=== PATIENT | male | born 1985 | race American Indian/Alaskan Native ===

== ENCOUNTER 2016-10-11 17:06 | Emergency (ER) | payer BC ==
[2016-10-11 17:14] VITALS: RESP 16; TEMP 98; BMI 35.4
--- NOTE | 2016-10-11 18:32 | ED PDOC ---
Arrival/HPI - General Chief Complaint: Back Pain Time Seen by Provider: 10/11/16 17:44 Historian: Patient - History of Present Illness Narrative History of Present Illness (Text): 10/11/16 18:32 A 31 year old male presents to the emergency department complaining of lower back pain for the past dew days. Patient reports his pain began after lifting weights. Patient notes radiating pain down his left leg. He reports secondary complaint of left great toe pain with minimal drainage. Patient denies any fever , chills, nausea, vomiting, diarrhea, abdominal pain, urinary symptoms, bladder/ bowel incontinence, chest pain, shortness of breath, cough, or any other complaints. PMD: Dr. Petty Time/Duration: < week Symptom Course: Unchanged Quality: Other Context: Other Past Medical History - Provider Review Nursing Documentation Reviewed: Yes - Psychiatric Hx Substance Use: No - Surgical History Hx Open Reduction Internal Fixation: Yes (Rt Shoulder) Family/Social History - Physician Review Nursing Documentation Reviewed: Yes Family/Social History: No Known Family HX Smoking Status: Never Smoked Hx Alcohol Use: No Hx Substance Use: No Allergies/Home Meds Allergies/Adverse Reactions: Allergies No Known Allergies Allergy (Verified 10/11/16 17:14) Review of Systems - Physician Review All systems were reviewed & negative as marked: Yes - Review of Systems Constitutional: absent: Fevers, Night Sweats Respiratory: absent: SOB, Cough Cardiovascular: absent: Chest Pain Gastrointestinal: absent: Abdominal Pain, Diarrhea, Nausea, Vomiting Genitourinary Male: absent: Dysuria, Frequency, Hematuria, Urinary Output Changes, Other (bladder/bowel incontinence) Musculoskeletal: Back Pain (lower back pain radiating down left lower extremity) , Other (Left great toe pain with minimal drainage) Physical Exam Vital Signs Reviewed: Yes Vital Signs Temp Pulse Resp BP Pulse Ox 10/11/16 18:35 72 16 138/77 99 10/11/16 17:11 98.0 F 55 L 16 145/88 98 Temperature: Afebrile Blood Pressure: Normal Pulse: Bradycardic Respiratory Rate: Normal Appearance: Positive for: Well-Appearing, Non-Toxic, Comfortable Pain Distress: None Mental Status: Positive for: Alert and Oriented X 3 - Systems Exam Head: Present: Atraumatic, Normocephalic Pupils: Present: PERRL Extroacular Muscles: Present: EOMI Conjunctiva: Present: Normal Mouth: Present: Moist Mucous Membranes Neck: Present: Normal Range of Motion Respiratory/Chest: Present: Clear to Auscultation, Good Air Exchange. No: Respiratory Distress, Accessory Muscle Use Cardiovascular: Present: Regular Rate and Rhythm, Normal S1, S2. No: Murmurs Abdomen: Present: Normal Bowel Sounds. No: Tenderness, Distention, Peritoneal Signs Back: Present: Other (Minimal diffuse lower back pain) Upper Extremity: Present: Normal Inspection. No: Cyanosis, Edema Lower Extremity: Present: NORMAL PULSES, Normal ROM, Neurovascularly Intact, Other (Ingrown nail in left great toe, tender to touch, no obvious drainage). No: Edema, CALF TENDERNESS, Deformity, Temperature Abnormalties Neurological: Present: GCS=15, CN II-XII Intact, Speech Normal Skin: Present: Warm, Dry, Normal Color. No: Rashes Psychiatric: Present: Alert, Oriented x 3, Normal Insight, Normal Concentration Medical Decision Making ED Course and Treatment: 10/11/16 18:32 Impression: A 31 year old male with lower back pain radiating down left lower extremity. Patient notes left great toe pain. Plan: -- Keflex and Motrin -- Reassess and disposition Progress Notes: - Medication Orders Current Medication Orders: Discontinued Medications Cephalexin Monohydrate (Keflex) 500 mg PO STAT STA PRN Reason: Protocol Stop: 10/11/16 17:45 Last Admin: 10/11/16 18:10 Dose: 500 mg Ibuprofen (Motrin Tab) 600 mg PO STAT STA Stop: 10/11/16 17:45 Last Admin: 10/11/16 18:10 Dose: 600 mg - Scribe Statement The provider has reviewed the documentation as recorded by the Gee Ribera Provider Scribe Attestation: All medical record entries made by the Scribe were at my direction and personally dictated by me. I have reviewed the chart and agree that the record accurately reflects my personal performance of the history, physical exam, medical decision making, and the department course for this patient. I have also personally directed, reviewed, and agree with the discharge instructions and disposition. Disposition/Present on Arrival - Present on Arrival Any Indicators Present on Arrival: No History of DVT/PE: No History of Uncontrolled Diabetes: No Urinary Catheter: No History of Decub. Ulcer: No History Surgical Site Infection Following: Orthopedic Procedures - Disposition Have Diagnosis and Disposition been Completed?: Yes Diagnosis: Toe abscess, Back pain Disposition: HOME/ ROUTINE Disposition Time: 17:35 Condition: GOOD Discharge Instructions (ExitCare): Ingrown Nail (ED), Back Pain (ED) Additional Instructions: Thank you for letting us take care of you today. Your provider was Dr. Woodson. You were treated for ingrown toe nail and back pain. The emergency medical care you received today was directed at your acute symptoms. If you were prescribed any medication, please fill it and take as directed. It may take several days for your symptoms to resolve. Return to the Emergency Department if your symptoms worsen, do not improve, or if you have any other problems. Please contact your doctor or call one of the physicians/clinics you have been referred to that are listed on the Patient Visit Information form that is included in your discharge packet. Bring any paperwork you were given at discharge with you along with any medications you are taking to your follow up visit. Our treatment cannot replace ongoing medical care by a primary care provider (PCP) outside of the emergency department. Thank you for allowing the [facility] team to be part of your care today. Follow up with your doctor in 2-3 days for re-evaluation. Prescriptions: Cephalexin [cephalexin] 500 mg PO BID #10 cap Ibuprofen [Motrin] 600 mg PO Q6 PRN #20 tab PRN Reason: Pain, Moderate (4-7) Referrals: Josie Escobar, [Non-Staff] - Follow up with primary
[2016-10-11 18:40] VITALS: BP 138/77; PULSE 72; O2SAT 99
== END 2016-10-11 18:37 | disposition home or self-care (01) ==
LOC: MERGE 17:06 → ED 17:06
DX: M54.9 Dorsalgia, unspecified (principal); L02.612 Cutaneous abscess of left foot

== ENCOUNTER 2016-10-18 17:50 | Emergency (ER) | payer OTHER, BC ==
[2016-10-18 18:17] VITALS: BP 119/63; PULSE 67; RESP 20; TEMP 98.6; O2SAT 99; BMI 34.4
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
== END 2016-10-18 19:28 | disposition home or self-care (01) ==
LOC: ED 17:50
DX: S39.012A Strain of muscle, fascia and tendon of lower back, initial encounter (principal); V49.9XXA Car occupant (driver) (passenger) injured in unspecified traffic accident, initial encounter
CPT/HCPCS: 72110; 96372; 99282; J1885

== ENCOUNTER 2017-03-02 10:33 | Emergency (ER) | payer BC ==
[2017-03-02 10:37] VITALS: BMI 35.4
[2017-03-02 10:41] VITALS: BP 136/84; PULSE 69; RESP 16; TEMP 97.7; O2SAT 98
--- NOTE | 2017-03-02 11:00 | ED PDOC ---
Arrival/HPI - General Chief Complaint: ENT Problem Time Seen by Provider: 03/02/17 10:56 Historian: Patient - History of Present Illness Narrative History of Present Illness (Text): 03/02/17 10:57 32-year-old male presents today with a 3 day history of sore throat congestion and dry cough that started today. Denies fevers. Positive sick contacts at home. Complaining of pain with swallowing. Denies chest pain. Denies ear pain. No medications have been taken for pain today. No complaints. Time/Duration: Other (3 days) Symptom Onset: Gradual Symptom Course: Worsening Quality: Aching, Stabbing, Burning Severity Level: 4 Past Medical History - Provider Review Nursing Documentation Reviewed: Yes - Travel History Have you recently traveled outside [place] w/in the past 3 mons?: No - Infectious Disease Hx of Infectious Diseases: None - Tetanus Immunization Tetanus Immunization: Unknown - Psychiatric Hx Substance Use: No - Surgical History Hx Open Reduction Internal Fixation: Yes (Rt Shoulder) Other/Comment: Right Shoulder - Anesthesia Hx Anesthesia: No Hx Anesthesia Reactions: No Hx Malignant Hyperthermia: No - Suicidal Assessment Feels Threatened In Home Enviroment: No Family/Social History - Physician Review Nursing Documentation Reviewed: Yes Family/Social History: Unknown Family HX Smoking Status: Never Smoked Hx Alcohol Use: No Hx Substance Use: No Allergies/Home Meds Allergies/Adverse Reactions: Allergies No Known Allergies Allergy (Verified 01/29/17 09:19) Review of Systems - Review of Systems Constitutional: absent: Fatigue, Fevers ENT: Sore Throat, Sinus Congestion Respiratory: Cough. absent: SOB Cardiovascular: absent: Chest Pain, Palpitations Gastrointestinal: absent: Abdominal Pain, Nausea, Vomiting Musculoskeletal: absent: Arthralgias Skin: absent: Rash, Pruritis Neurological: absent: Headache, Dizziness Psychiatric: absent: Anxiety, Depression Physical Exam Vital Signs Reviewed: Yes Vital Signs Temp Pulse Resp BP Pulse Ox 03/02/17 10:37 97.7 F 69 16 136/84 98 Temperature: Afebrile Blood Pressure: Normal Pulse: Regular Respiratory Rate: Normal Appearance: Positive for: Well-Appearing, Non-Toxic, Comfortable Pain Distress: None Mental Status: Positive for: Alert and Oriented X 3 - Systems Exam Head: Present: Atraumatic Conjunctiva: Present: Normal Ears: Present: Normal, NORMAL TM, Normal Canal. No: Erythema Mouth: Present: Moist Mucous Membranes, Normal Lips, Normal Tounge, Normal Teeth. No: Drooling, Trismus Pharnyx: Present: ERYTHEMA. No: EXUDATE, TONSILS ENLARGED, Peritonsilar Swelling, Uvular Deviation, Muffled/Hoarse Voice, Strider, Soft Palate/Uvular Edema Nose (External): Present: Atraumatic Nose (Internal): Present: Clear Mucous. No: Septal Hematoma Neck: Present: Normal Range of Motion, Trachea Midline. No: Meningeal Signs, Lymphadenopathy Respiratory/Chest: Present: Clear to Auscultation Cardiovascular: Present: Regular Rate and Rhythm Neurological: Present: GCS=15 Skin: Present: Warm, Dry, Normal Color. No: Rashes Psychiatric: Present: Alert, Oriented x 3 Medical Decision Making ED Course and Treatment: 03/02/17 10:59 Patient is nontoxic well appearing in no distress. Vital signs are stable Tolerating p.o. fluids and solids Motrin 600 mg p.o. amoxicillin po I advised follow up with primary care physician within the next 2 days, advised to increase fluids take medications as prescribed and return if symptoms worsen persist or if new symptoms develop Patient verbalizes understanding of discharge instructions and need for immediate followup. all aspects of this case were discussed the attending of record. IMPRESSION; pharyngitis Motrin every 6 hours as needed for pain/fever reduction Increase fluids Amoxicillin 3 times daily x10 days Flonase; 2 sprays each nostril once daily. Follow up primary care physician within the next 2 days Follow up with the ENT specialist within the next 2 days. Saltwater gargles, throat lozenges Return if symptoms worsen persist or if the symptoms develop; high fevers, increasing pain, difficulty swallowing, feeling of throat closing or if any other concerning symptoms develop. - Medication Orders Current Medication Orders: Discontinued Medications Amoxicillin (Amoxil 500 Mg Cap) 500 mg PO STAT STA PRN Reason: Protocol Stop: 03/02/17 10:58 Last Admin: 03/02/17 11:13 Dose: 500 mg Ibuprofen (Motrin Tab) 600 mg PO STAT STA Stop: 03/02/17 10:58 Last Admin: 03/02/17 11:14 Dose: 600 mg MAR Pain/Vitals Document 03/02/17 11:14 TA (Rec: 03/02/17 11:14 TA [id number]) Pain Reassessment Is This A Pain ReAssessment? Yes Sleep Is patient sleeping during reassessment? Yes Pain Scale Used Pain Scale Used Numeric Disposition/Present on Arrival - Present on Arrival Any Indicators Present on Arrival: No History of DVT/PE: No History of Uncontrolled Diabetes: No Urinary Catheter: No History of Decub. Ulcer: No History Surgical Site Infection Following: Orthopedic Procedures - Disposition Have Diagnosis and Disposition been Completed?: Yes Diagnosis: Pharyngitis Disposition: HOME/ ROUTINE Disposition Time: 11:01 Patient Plan: Discharge Condition: GOOD Discharge Instructions (ExitCare): Pharyngitis (ED) Additional Instructions: Motrin every 6 hours as needed for pain/fever reduction Increase fluids Amoxicillin 3 times daily x10 days Flonase; 2 sprays each nostril once daily. Follow up primary care physician within the next 2 days Follow up with the ENT specialist within the next 2 days. Saltwater gargles, throat lozenges Return if symptoms worsen persist or if the symptoms develop; high fevers, increasing pain, difficulty swallowing, feeling of throat closing or if any other concerning symptoms develop. Prescriptions: Amoxicillin 500 mg PO TID #30 tab Fluticasone Nasal [Flonase] 2 spr NS DAILY #1 spr Ibuprofen [Motrin] 600 mg PO Q6H PRN #20 tab PRN Reason: pain/fever reduction Referrals: Oracio Wilburn DO [Staff Provider] - Follow up with primary Stuart Selby MD [Staff Provider] - Follow up with primary Forms: [employer] ([place]), WORK NOTE
== END 2017-03-02 14:01 | disposition home or self-care (01) ==
LOC: ED 10:33
DX: J02.9 Acute pharyngitis, unspecified (principal)

== ENCOUNTER 2017-03-22 08:51 | Emergency (ER) | payer BC ==
[2017-03-22 08:52] VITALS: BMI 35.4
== END 2017-03-22 09:19 | disposition left against medical advice (07) ==
LOC: ED 08:51
DX: Z02.89 Encounter for other administrative examinations (principal); R04.0 Epistaxis

== ENCOUNTER 2017-11-17 16:18 | Emergency (ER) | payer BC ==
[2017-11-17 16:34] VITALS: BMI 35.9
[2017-11-17 16:42] VITALS: RESP 18; O2SAT 99
--- NOTE | 2017-11-17 16:48 | ED PDOC ---
Arrival/HPI - General Chief Complaint: Back Pain Time Seen by Provider: 11/17/17 16:32 Historian: Patient - History of Present Illness Narrative History of Present Illness (Text): 11/17/17 16:43 32yo [place] obese male with no pmhx who present with left sided lower back pain that radiates to his posterior thigh x 3days. He reports previous history of same back pain. States he usually lifts objects at work and this pain started while lifting a table at work. States he continued lifting for the next two days after the pain started and it became worse this morning. Pain is described as "aching", usually with sitting, ambulation and movement. States he took Julia ASA without relieve. Denies abdominal pain, focal weakness, saddle anesthesia, urinary/fecal incontinence, urinary symptoms, trauma, nausea, vomiting, any other complaint. Past Medical History - Provider Review Nursing Documentation Reviewed: Yes - Infectious Disease Hx of Infectious Diseases: None - Tetanus Immunization Tetanus Immunization: Unknown - Psychiatric Hx Substance Use: No - Surgical History Hx Open Reduction Internal Fixation: Yes (Rt Shoulder) Other/Comment: Right Shoulder - Anesthesia Hx Anesthesia: No Hx Anesthesia Reactions: No Hx Malignant Hyperthermia: No - Suicidal Assessment Feels Threatened In Home Enviroment: No Family/Social History - Physician Review Nursing Documentation Reviewed: Yes Family/Social History: Unknown Family HX Smoking Status: Never Smoked Hx Alcohol Use: No Hx Substance Use: No Allergies/Home Meds Allergies/Adverse Reactions: Allergies No Known Allergies Allergy (Verified 11/17/17 16:33) Review of Systems - Physician Review All systems were reviewed & negative as marked: Yes - Review of Systems Constitutional: Normal Eyes: Normal ENT: Normal Respiratory: Normal Cardiovascular: Normal Gastrointestinal: Normal Genitourinary Male: Normal Musculoskeletal: Back Pain Skin: Normal Neurological: Normal Endocrine: Normal Hemo/Lymphatic: Normal Psychiatric: Normal Physical Exam Vital Signs Reviewed: Yes Vital Signs Temp Pulse Resp BP Pulse Ox 11/17/17 17:03 98 F 57 L 18 128/80 99 11/17/17 16:37 98.0 F 60 18 136/76 99 Temperature: Afebrile Blood Pressure: Normal Pulse: Regular Respiratory Rate: Normal Appearance: Positive for: Well-Appearing, Non-Toxic, Comfortable Pain Distress: None Mental Status: Positive for: Alert and Oriented X 3 - Systems Exam Head: Present: Atraumatic, Normocephalic Pupils: Present: PERRL Extroacular Muscles: Present: EOMI Conjunctiva: Present: Normal Mouth: Present: Moist Mucous Membranes Neck: Present: Normal Range of Motion Respiratory/Chest: Present: Clear to Auscultation, Good Air Exchange. No: Respiratory Distress, Accessory Muscle Use Cardiovascular: Present: Regular Rate and Rhythm, Normal S1, S2. No: Murmurs Abdomen: No: Tenderness, Distention, Peritoneal Signs Back: Present: Paraspinal Tenderness (Mild left paralumbar tenderness). No: Midline Tenderness, Pain with Leg Raise Upper Extremity: Present: Normal Inspection. No: Cyanosis, Edema Lower Extremity: Present: Normal Inspection. No: Edema Neurological: Present: GCS=15, CN II-XII Intact, Speech Normal Skin: Present: Warm, Dry, Normal Color. No: Rashes Psychiatric: Present: Alert, Oriented x 3, Normal Insight, Normal Concentration Medical Decision Making ED Course and Treatment: 11/17/17 21:47 PT in ED for back pain. He reported history of same back pain. He was ambulatory in ED. On re evaluation s/p medication he notes significant improvement. He was DC home with ibuprofen and flexeril Referred to his PMD - Medication Orders Current Medication Orders: Discontinued Medications Ketorolac Tromethamine (Toradol) 60 mg IM STAT STA Stop: 11/17/17 16:43 Last Admin: 11/17/17 16:57 Dose: 60 mg MAR Pain Assessment Document 11/17/17 16:57 SRE (Rec: 11/17/17 16:58 SRE [id number]) Pain Reassessment Is this a pain reassessment? Yes Sleep Is patient sleeping during reassessment? No Presence of Pain Presence of Pain No IM Administration Charges Document 11/17/17 16:57 SRE (Rec: 11/17/17 16:58 SRE [id number]) Charges for Administration # of IM Administrations 1 Disposition/Present on Arrival - Present on Arrival Any Indicators Present on Arrival: No History of DVT/PE: No History of Uncontrolled Diabetes: No Urinary Catheter: No History of Decub. Ulcer: No History Surgical Site Infection Following: Orthopedic Procedures - Disposition Have Diagnosis and Disposition been Completed?: Yes Diagnosis: Sciatica Disposition: HOME/ ROUTINE Disposition Time: 16:50 Patient Plan: Discharge Condition: STABLE Discharge Instructions (ExitCare): Sciatica (DC) Additional Instructions: Follow up with your Doctor Return to ED for any new or worsening symptoms Prescriptions: Cyclobenzaprine [Cyclobenzaprine HCl] 10 mg PO TID #12 tab Ibuprofen [Motrin Tab] 600 mg PO Q6 #20 tab Referrals: Cesario Trevino DO [Staff Provider] - Follow up with primary Forms: [employer] (Welsh)
[2017-11-17 17:04] VITALS: BP 128/80; PULSE 57; TEMP 98
== END 2017-11-17 17:03 | disposition home or self-care (01) ==
LOC: ED 16:18
DX: M54.30 Sciatica, unspecified side (principal)
CPT/HCPCS: 96372; 99282; J1885